=== PATIENT | male | born 1950 | race Caucasian/White ===

== ENCOUNTER → 2020-04-18 10:36 | Outpatient (CLI) | payer MEDICARE, SELFPAY ==
[2020-04-18 11:49] LABS: Add Manual Diff / Slide Review NO; Basophils Absolute Auto 0 /uL (0-100); Basophils Percent Auto 0.5 % (0-2); Eosinophils Absolute Auto 200 /uL (0-450); Eosinophils Percent Auto 2.8 % (2-4); Hematocrit 41.7 % (41-53); Hemoglobin 14.2 g/dL (13.5-17.5); Lymphocytes Absolute Auto 1400 /uL (1100-4500); Lymphocytes Percent Auto 22.6 % (25-40); Mean Corpuscular HGB Conc 33.9 % (30-36); Mean Corpuscular Hemoglobin 31.2 PG (26-34); Monocytes Absolute Auto 600 /uL (0-900); Monocytes Percent Auto 8.9 % (3-14); Neutrophils Absolute Auto 4100 /uL (1500-7000); Neutrophils Percent Auto 65.2 % (50-75); Platelet Count 183 X10^3/uL (150-400); Red Blood Cell Count 4.54 X10^6/uL (4.5-5.9); Red Cell Distribution Width 13.9 % (11.6-14.8); White Blood Cell Count 6.3 X10^3/uL (4.5-11.0)
[2020-04-18 12:12] LABS: Alanine Aminotransferase 20 IU/L (<50); Albumin 4.5 g/dL (3.5-5.0); Albumin Globulin Ratio 1.7 (1.0-2.8); Alkaline Phosphatase 73 U/L (38-126); Aspartate Aminotransferase 22 IU/L (17-59); BUN Creatinine Ratio 18.5 (6-22); Bilirubin Total 1.2 mg/dL (0.2-1.3); Blood Urea Nitrogen 17 mg/dL (9-20); Calcium 9.6 mg/dL (8.4-10.2); Carbon Dioxide 26 mmol/L (22-32); Chloride 106 mmol/L (98-107); Cholesterol 152 mg/dL (140-199); Estimated Glomerular Filt Rate > 60.0 mL/min (>60); Globulin 2.6 g/dL (1.7-4.1); Glucose 110 mg/dL (80-110); HDL Cholesterol 44 mg/dL (40-60); HEMOLYSIS < 15 (0-50); LDL Cholesterol Calculated 89 mg/dL (<100); Potassium 4.2 mmol/L (3.4-5.1); Sodium 138 mmol/L (137-145); Total Protein 7.1 g/dL (6.3-8.2); Triglycerides 93 mg/dL (35-150)
[2020-04-18 12:42] LABS: Prostate Specific Antigen Scrn 1.94 ng/mL (0.1-4.0); TSH w/ Reflex to FT4 1.72 uIU/mL (0.47-4.68)
== END ==
PROVIDERS: PCP Registered Nurse; Referring Provider Registered Nurse; Visit Provider Registered Nurse
DX: Z12.5 Encounter for screening for malignant neoplasm of prostate (principal); I49.9 Cardiac arrhythmia, unspecified; R01.1 Cardiac murmur, unspecified; R53.83 Other fatigue
CPT/HCPCS: 36415; 80053; 80061; 84443; 85025; G0103

== ENCOUNTER 2021-07-18 16:51 | Observation (INO) | payer MEDICARE, SELFPAY ==
[2021-07-18] VITALS (9 sets, daily range): BP systolic 146–163; BP diastolic 75–97; PULSE 75–95; RESP 18–24; TEMP 36.2–36.4; O2SAT 96–100; BMI 24.4; BMI 25.7
--- NOTE | 2021-07-18 16:59 | DI.RAD.S_ITS ---
PROCEDURE: XR CHEST 2V INDICATIONS: shortness of breath TECHNIQUE: 2 views of the chest were acquired. COMPARISON: [facility], CR, XR CHEST 2 VIEWS, 06/02/2020, 11:28. [facility], CR, XR HUMERUS RIGHT, 06/04/2020, 10:29. FINDINGS: Overlying EKG wires. Surgical changes and devices: None. Lungs and pleura: Small right-sided pleural effusion with adjacent atelectasis. Mild interstitial prominence and cephalization of the pulmonary vasculature. No pneumothorax. Mediastinum: Mediastinal contours are normal. Stable cardiomegaly. 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 No acute osseous abnormality. Soft tissues appear unremarkable. IMPRESSION: Cardiomegaly with vascular vascular congestion, interstitial edema, and small right-sided pleural effusion. Dictated by: Chiki Sanders D.O. on 07/18/2021 at 16:48 Approved by: Chiki Sanders D.O. on 07/18/2021 at 16:50
[2021-07-18 17:10] LABS: Add Manual Diff / Slide Review NO; Basophils Absolute Auto 100 /uL (0-100); Basophils Percent Auto 0.6 % (0-2); Eosinophils Absolute Auto 100 /uL (0-450); Eosinophils Percent Auto 1.2 % (2-4); Hematocrit 41.3 % (41-53); Hemoglobin 13.4 g/dL (13.5-17.5); Lymphocytes Absolute Auto 1600 /uL (1100-4500); Lymphocytes Percent Auto 19.7 % (25-40); Mean Corpuscular HGB Conc 32.5 % (30-36); Mean Corpuscular Hemoglobin 30.7 PG (26-34); Mean Corpuscular Volume 94.5 fL (80-100); Monocytes Absolute Auto 1000 /uL (0-900); Monocytes Percent Auto 11.7 % (3-14); Neutrophils Absolute Auto 5600 /uL (1500-7000); Neutrophils Percent Auto 66.8 % (50-75); Platelet Count 204 X10^3/uL (150-400); Red Blood Cell Count 4.38 X10^6/uL (4.5-5.9); Red Cell Distribution Width 14.5 % (11.6-14.8); White Blood Cell Count 8.3 X10^3/uL (4.5-11.0)
--- NOTE | 2021-07-18 17:17 | ED_ITS ---
HPI - SOB/Dyspnea General Chief Complaint: Shortness of Breath/Dyspnea Stated Complaint: lungs are hurting, cant breathe, Time Seen by Provider: 07/18/21 17:05 Source: patient Mode of arrival: Ambulatory Limitations: no limitations History of Present Illness HPI Narrative: The patient complains of dyspnea, and now dyspnea on exertion. He 1st experienced this before 6 weeks ago. He now is experiencing dyspnea on a regular basis, significantly increased with exertion. He became dizzy yesterday with exertion and moving about along with dizziness. He denies chest pain. He does not think he is experiencing palpitations. Medical records indicate a history of atrial fib. He is not anticoagulated. Is a nonsmoker. He has no history of allergies or asthma. He denies recent illness. He has no headache, sore throat, or cough. He denies fever. He has no chronic pulmonary disease. He denies orthopnea or lower extremity edema. He has no current GI complaints. With the known history of atrial fib he was previously prescribed Eliquis. He is currently on no medications. He did not continue the Eliquis because of cost. Related Data Allergies Allergy/AdvReac Type Severity Reaction Status Date / Time No Known Drug Allergies Allergy Verified 07/18/21 17:00 Review of Systems Constitutional Constitutional: Reports as per HPI, Denies body ache(s), Denies chills, Denies fatigue and Denies fever(s) Eyes Eyes: Denies blurry vision and Denies loss of vision ENT Ears, Nose, Mouth, and Throat: Reports dizziness, Denies neck pain and Denies sore throat Cardiovascular Cardiovascular: Denies syncope, Denies rapid heart rate, Denies irregular heart rhythm, Denies leg edema and Reports lightheadedness Respiratory Respiratory: Reports as per HPI Gastrointestinal Gastrointestinal: Denies abdominal pain, Denies dyspepsia and Denies nausea Genitourinary Comments: No symptoms Musculoskeletal Musculoskeletal: Denies neck pain Comments: No complaints Neurologic Neurologic: Denies confusion, Reports dizziness, Denies syncope and Denies loss of vision Psychiatric Psychiatric: Denies confusion Endocrine Endocrine: Denies fatigue Hematologic/Lymphatic On Anticoagulants: No Patient History Medical History (Updated 07/18/21 @ 18:18 by Samy Arguelles MD) Atrial fibrillation Murmur, heart Social History Smoking Status: Never smoker Smoking Status: Never smoker alcohol intake frequency: holidays/special occasions only Substance Use Type: marijuana Exam Initial Vital Signs Initial Vital Signs: Vital Signs Pulse Rate 89 07/18/21 16:58 Respiratory Rate 24 07/18/21 16:58 Pulse Oximetry 99 07/18/21 16:58 Const General: cooperative, healthy appearing and other (Anxious) HENMT Head: normal to inspection Face and sinus: normal facial exam and sinuses nontender Throat: posterior oropharynx normal Eyes EOM: EOM intact bilaterally Neck Neck: supple, No tender and No JVD Carotids: normal carotid upstroke Lymphatic: No lymphadenopathy Chest Chest: normal inspection of the chest Resp Effort & Inspection: normal respiratory effort Auscultation: clear to auscultation bilaterally Cardio Rhythm: abnormal rhythm irregularly irregular Heart Sounds: S1 normal, S2 normal and murmur systolic mid and II/ GI Inspection: normal to inspection Palpation: soft and No tender Auscultation: normal bowel sounds Back/Spine/Pelvis Back: normal to inspection Skin General: no rashes or lesions noted Neuro General: patient alert, patient awake, patient oriented x3 and no focal motor deficits Motor: muscle tone normal throughout Sensory Exam: no sensory deficits noted Extrem General: normal to inspection, full ROM and no calf tenderness Psych Appearance: well kempt Mood: anxious mood Course Course Course Narrative: The patient has cardiomegaly and CHF. This was discussed with the hospitalist, Dr. Huff. Dr. Huff had access to a cardiac catheterization about 13 months ago that the patient made no mention of. The patient is post be on beta blockers, aspirin and statins. He was also prescribed anticoagulants for AFib. Again, he is taking no medications. I have given him aspirin, as well as a dose of Lasix due to the CHF. He will be admitted for additional e valuation. A COVID screen is negative. Orders Ordered: ED Orders 07/18/21 16:58 COVID19 -Nasal swab/Pre-Proc Stat 07/18/21 16:59 XR chest 2V Stat EKG-12 Lead Stat Measure peak expiratory flow ONCE RT Consult Eval and Treat Now 07/18/21 17:00 Complete Blood Count AUTO DIFF Stat Comprehensive Metabolic Panel Stat Lactate (Lactic Acid) Stat NT-proBNP (BNP-Adult 18+) Stat Vital Signs Vital signs: Vital Signs - 8 hr 07/18/21 16:58 07/18/21 17:00 07/18/21 17:01 Temperature 97.2 F L Pulse Rate 89 89 92 H Respiratory Rate 24 22 19 Blood Pressure 153/97 H 155/86 H Pulse Oximetry 99 99 98 MDM - SOB/Dyspnea Lab Data Result diagrams: 07/18/21 17:00 07/18/21 17:00 Labs: Lab Results 07/18/21 07/18/21 07/18/21 Range/Units 16:58 17:00 17:00 WBC 8.3 (4.5-11.0) X10^3/uL RBC 4.38 L (4.5-5.9) X10^6/uL Hgb 13.4 L (13.5-17.5) g/dL Hct 41.3 (41-53) % MCV 94.5 (80-100) fL MCH 30.7 (26-34) PG MCHC 32.5 (30-36) % RDW 14.5 (11.6-14.8) % Plt Count 204 (150-400) X10^3/uL Neut % (Auto) 66.8 (50-75) % Lymph % (Auto) 19.7 L (25-40) % [place] % (Auto) 11.7 (3-14) % Eos % (Auto) 1.2 L (2-4) % Baso % (Auto) 0.6 (0-2) % Neut # (Auto) 5600 (9557-1873) /uL Lymph # (Auto) 1600 (2995-7463) /uL [place] # (Auto) 1000 H (0-900) /uL Eos # (Auto) 100 (0-450) /uL Baso # (Auto) 100 (0-100) /uL Sodium 140 (137-145) mmol/L Potassium 4.1 (3.4-5.1) mmol/L Chloride 107 (98-107) mmol/L Carbon Dioxide 26 (22-32) mmol/L BUN 28 H (9-20) mg/dL Creatinine 1.10 (0.66-1.25) mg/dL Estimated GFR > 60.0 (>60) mL/min BUN/Creatinine Ratio 25.5 H (6-22) Glucose 125 H (80-110) mg/dL Lactate (0.7-2.1) mmol/L Calcium 9.0 (8.4-10.2) mg/dL Total Bilirubin 1.2 (0.2-1.3) mg/dL AST 28 (17-59) IU/L ALT 28 (<50) IU/L Alkaline Phosphatase 86 (38-126) U/L NT-Pro-B Natriuret Pep 6760 H (<125) pg/mL Total Protein 7.1 (6.3-8.2) g/dL Albumin 4.1 (3.5-5.0) g/dL Globulin 3.0 (1.7-4.1) g/dL Albumin/Globulin Ratio 1.4 (1.0-2.8) SARS-CoV-2 (PCR) Negative (Negative) 07/18/21 Range/Units 17:00 WBC (4.5-11.0) X10^3/uL RBC (4.5-5.9) X10^6/uL Hgb (13.5-17.5) g/dL Hct (41-53) % MCV (80-100) fL MCH (26-34) PG MCHC (30-36) % RDW (11.6-14.8) % Plt Count (150-400) X10^3/uL Neut % (Auto) (50-75) % Lymph % (Auto) (25-40) % [place] % (Auto) (3-14) % Eos % (Auto) (2-4) % Baso % (Auto) (0-2) % Neut # (Auto) (1712-2690) /uL Lymph # (Auto) (5453-7198) /uL [place] # (Auto) (0-900) /uL Eos # (Auto) (0-450) /uL Baso # (Auto) (0-100) /uL Sodium (137-145) mmol/L Potassium (3.4-5.1) mmol/L Chloride (98-107) mmol/L Carbon Dioxide (22-32) mmol/L BUN (9-20) mg/dL Creatinine (0.66-1.25) mg/dL Estimated GFR (>60) mL/min BUN/Creatinine Ratio (6-22) Glucose (80-110) mg/dL Lactate 1.1 (0.7-2.1) mmol/L Calcium (8.4-10.2) mg/dL Total Bilirubin (0.2-1.3) mg/dL AST (17-59) IU/L ALT (<50) IU/L Alkaline Phosphatase (38-126) U/L NT-Pro-B Natriuret Pep (<125) pg/mL Total Protein (6.3-8.2) g/dL Albumin (3.5-5.0) g/dL Globulin (1.7-4.1) g/dL Albumin/Globulin Ratio (1.0-2.8) SARS-CoV-2 (PCR) (Negative) Imaging Data Chest x-ray: My Impression: Cardiomegaly. CHF. ECG Data Attestation: I personally reviewed and interpreted this ECG as follows: (AFib. LVH. Persistent motion artifact. PVCs. No acute ST T wave elevation.) Critical Care Time Critical Care Time Critical Care Time: Yes Total Critical Care Time: 40 Attestation: Critical care time includes the initial patient assessment, review of available records, review of EKG, lab and radiology data. The situation was discussed with the patient. He was presented to the admitting hospitalist. Discharge Plan Departure Patient Disposition: Admitted as Observation Clinical Impression: Cardiomegaly Congestive heart failure Qualifiers: Heart failure type: unspecified Heart failure chronicity: acute Qualified Code(s): I50.9 - Heart failure, unspecified Atrial fibrillation Qualifiers: Atrial fibrillation type: persistent (not longstanding) Qualified Code(s): I48.19 - Other persistent atrial fibrillation Referrals: Candelario Koch ARNP [Primary Care Provider] - Admit Date/Time: 07/18/21 18:17
[2021-07-18 17:21] LABS: Lactate (Lactic Acid) 1.1 mmol/L (0.7-2.1)
[2021-07-18 17:22] LABS: Alanine Aminotransferase 28 IU/L (<50); Albumin 4.1 g/dL (3.5-5.0); Albumin Globulin Ratio 1.4 (1.0-2.8); Alkaline Phosphatase 86 U/L (38-126); Aspartate Aminotransferase 28 IU/L (17-59); BUN Creatinine Ratio 25.5 (6-22); Bilirubin Total 1.2 mg/dL (0.2-1.3); Blood Urea Nitrogen 28 mg/dL (9-20); Carbon Dioxide 26 mmol/L (22-32); Chloride 107 mmol/L (98-107); Estimated Glomerular Filt Rate > 60.0 mL/min (>60); Glucose 125 mg/dL (80-110); HEMOLYSIS < 15 (0-50); Potassium 4.1 mmol/L (3.4-5.1); Sodium 140 mmol/L (137-145); Total Protein 7.1 g/dL (6.3-8.2)
[2021-07-18 17:25] LABS: COVID19 -Nasal RAPID Negative (Negative)
[2021-07-18 17:31] LABS: NT-proBNP (BNP-Adult 18+) 6760 pg/mL (<125)
--- NOTE | 2021-07-18 18:01 | PC.NURSE ---
Pt resting quietly in bed, awake, call light within reach. States symptoms persist but are not getting worse. Remains A&Ox4, NAD.
[2021-07-18] MEDS: FUROSEMIDE 40 MG/4 ML VIAL IV (18:18)
[2021-07-18] MEDS: ASPIRIN 81 MG CHEW TAB 324 MG PO (18:18)
--- NOTE | 2021-07-18 19:00 | PC.NURSE ---
Report called to MARY Sykes
[2021-07-18 19:09] LABS: Creatine Kinase 155 U/L (55-170)
[2021-07-18 19:25] LABS: Creatine Kinase MB 3.07 ng/mL (<2.37)
--- NOTE | 2021-07-18 19:43 | PC.NURSE ---
Addendum entered by Mony Tirado R.N. 07/18/21 23:38: patient continues to deny chest pain/dyspnea/sob. tele afib 86. leads removed and replaced after an impromptu wax job of his chest hair. ICU reports better view on monitor. will have Echo tomorrow, 1st trop was 0.30, trending up 0.35. FR 2000/shift. report to CHASITY Pelayo RN. Original Note: 1904: admit to floor from ED via w/c. a/o x 4, voices needs. stands easily, ambulated to/from bathroom w/ steady gait. denies cp / dyspnea. LS are CTA all lobes. no SOB noted at rest or after exertion. no skin issues. VS obtained, covid - spoke w/ daughter Kristi after patient gave verbal consent for this nurse to give her information. his main visitor will be his Nichole, and she will be here tomorrow morning. ok from [place] for patient to be placed on telemetry for dx: cardiomegaly, hx afib w/o medications, hx of HTN. and presentation of CP vs pneumonia/CHF. tele applied, oriented to room, call light, plan of care. patient states he understands.
--- NOTE | 2021-07-18 19:44 | P.HP_ITS ---
History of Present Illness History of Present Illness Date Patient Seen: 07/18/21 Time Patient Seen: 19:44 Chief complaint: lungs are hurting, cant breathe, Narrative: Rodney Izquierdo is a 70yr old male with a history of essential hypertension, non-smoker, cardiomegaly, atrial fibrillation, Hx Heart Cath 05/2020. Presented to the ED with complaint of worsening dyspnea, and dyspnea on exertion. He now is experiencing dyspnea on a regular basis for the past 6 wks, which recently significantly increased with exertion.? He became dizzy yesterday with exertion and moving about along with dizziness.? He denies chest pain, SIMPSON, arm pain, numbness, tingling, fever, body aches, diaphoresis, respiratory symptoms, abd pain, nausea, or vomiting. Denies recent illness, injury, or trauma. Denies Cardiac or respiratory history, edema of extremities, or orthopenia. He does not think he is experiencing palpitations, but notes that he can feel his afib.?The patient was prescribed metoprolol, Losarten, aspirin, Lipitor, Eliquis following Heart catheterization 05/2020 Dr. Mcdonald He lost his employment about a year ago and was unable to afford to pay for his medications, and have not taken them x 1year. Upon admit to the floor patient is stable in no respiratory distress, dyspnea has improved with 40 of IV Lasix in ED, not requiring oxygen. Patient's vitals are stable upon admit with a slightly elevated blood pressure temp 97.2?, BP 163/88, HR 89, RR 20, O2 saturation 97% on room air. Patient's CBC normal, CMP BUN 28, glucose 125, BNP 6,760, troponin#1 0.030, #2 0.034-patient is completely asymptomatic without chest pain or shortness of breath. Chest x-ray demonstrated cardiomegaly with vascular congestion, interstitial edema, and a small right-sided pleural effusion. COVID negative. Per ED:?ECG as follows:AFib.?LVH.?Persistent motion artifact.? PVCs.? No acute ST T wave elevation. Patient admitted for shortness of breath, uncontrolled hypertension. Patient History Medical History (Updated 07/19/21 @ 00:54 by VI Polanco) Atrial fibrillation Cardiomegaly Essential hypertension Murmur, heart Surgical History (Updated 07/19/21 @ 00:54 by Mona Heller [facility]) No history of previous surgery Family & Social History Family History Mother Dementia Father Sepsis Sister Cancer Safety & Behavioral: Feels Safe in Current Yes Environment Been Physically Hurt or No Threatened By a Person Tobacco & Substance use: Smoking Status Never smoker alcohol intake frequency holiday/special occasion Substance Use Type marijuana Meds Home Medications and Allergies Home Medications Medication Instructions Recorded Confirmed Type No Known Home Medications 07/18/21 07/18/21 History Allergies Allergy/AdvReac Type Severity Reaction Status Date / Time No Known Drug Allergies Allergy Verified 07/18/21 17:00 Review of Systems Review of Systems Narrative: All 12 point systems reviewed with the patient and are negative except otherwise documented. Exam Vital Signs (past 8 hours): - 07/18/21 16:58 07/18/21 17:00 07/18/21 17:01 Temperature 97.2 F L Pulse Rate 89 89 92 H Respiratory Rate 24 22 19 Blood Pressure 153/97 H 155/86 H Pulse Oximetry 99 99 98 07/18/21 17:30 07/18/21 17:31 07/18/21 18:00 Temperature Pulse Rate 89 85 75 Respiratory Rate 22 19 19 Blood Pressure 155/82 H 151/75 H 146/80 H Pulse Oximetry 97 97 96 07/18/21 18:30 07/18/21 18:31 Temperature Pulse Rate 95 H 89 Respiratory Rate 22 20 Blood Pressure 163/88 H Pulse Oximetry 97 97 Oxygen Delivery Method Room Air Narrative Exam Narrative: General: Patient is a well-developed, well-nourished in no distress at this time. HEENT: Normocephalic, atraumatic, extraocular muscles intact, oral pharynx is clear and mucous membranes are moist. Neck is supple and symmetric, trachea is midline, no adenopathy, no thyroid enlargement, nontender, no masses palpated. Positive Left JVD. Chest: Normal AP diameter and contour without kyphoscoliosis, no nasal flaring, retractions, or tachypneic labored breathing. Lungs: Auscultation of all lung gold are clear without adventitious sounds, wheezes, rhonchi, or rales. Cardio: S1 & S2 with iregular rate and rhythm with murmur, without rubs, or gallops, no carotid bruit, no cardiac pulsations present. Abdomen: Soft nontender, negative for organomegaly, or masses. Bowel sounds are present in all 4 quadrants without guarding or rebound, no CVA tenderness. Musculoskeletal: Muscle strength and tone are equal within normal limits, no deformity, crepitus, effusions, cyanosis, clubbing or edema present. Full range of motion intact radial and pedal pulses are normal. Skin: Warm dry and intact without rashes, ulcerations or petechiae. Neuro: Alert and orientated x3, strength is +5/5 in all extremities, sensation to touch intact, no gross deficits noted of cranial nerves. Psych: Patient has a well-kept appearance, appropriate affect, mental status attitude thought context and judgment are appropriate for age. Objective Labs Result Diagrams: 07/18/21 17:00 07/18/21 17:00 Labs: Laboratory Results - last 24 hr 07/18/21 07/18/21 07/18/21 16:58 17:00 17:00 WBC 8.3 RBC 4.38 L Hgb 13.4 L Hct 41.3 MCV 94.5 MCH 30.7 MCHC 32.5 RDW 14.5 Plt Count 204 Neut % (Auto) 66.8 Lymph % (Auto) 19.7 L [place] % (Auto) 11.7 Eos % (Auto) 1.2 L Baso % (Auto) 0.6 Neut # (Auto) 5600 Lymph # (Auto) 1600 Tate # (Auto) 1000 H Eos # (Auto) 100 Baso # (Auto) 100 Sodium 140 Potassium 4.1 Chloride 107 Carbon Dioxide 26 BUN 28 H Creatinine 1.10 Estimated GFR > 60.0 BUN/Creatinine Ratio 25.5 H Glucose 125 H Lactate Calcium 9.0 Total Bilirubin 1.2 AST 28 ALT 28 Alkaline Phosphatase 86 Total Creatine Kinase CK-MB (CK-2) CK-MB (CK-2) Rel Index Troponin I NT-Pro-B Natriuret Pep 6760 H Total Protein 7.1 Albumin 4.1 Globulin 3.0 Albumin/Globulin Ratio 1.4 SARS-CoV-2 (PCR) Negative 07/18/21 07/18/21 17:00 17:00 WBC RBC Hgb Hct MCV MCH MCHC RDW Plt Count Neut % (Auto) Lymph % (Auto) Tate % (Auto) Eos % (Auto) Baso % (Auto) Neut # (Auto) Lymph # (Auto) Tate # (Auto) Eos # (Auto) Baso # (Auto) Sodium Potassium Chloride Carbon Dioxide BUN Creatinine Estimated GFR BUN/Creatinine Ratio Glucose Lactate 1.1 Calcium Total Bilirubin AST ALT Alkaline Phosphatase Total Creatine Kinase 155 CK-MB (CK-2) 3.07 H CK-MB (CK-2) Rel Index 2.0 Troponin I 0.030 NT-Pro-B Natriuret Pep Total Protein Albumin Globulin Albumin/Globulin Ratio SARS-CoV-2 (PCR) Assessment & Plan Assessment & Plan narrative: Rodney Izquierdo is a 70yr old male with a history of essential hypertension, non-smoker, cardiomegaly, atrial fibrillation, Hx Heart Cath 05/2020. Presented to the ED with complaint of worsening dyspnea, and dyspnea on exertion. The patient was prescribed metoprolol, Losarten, aspirin, Lipitor, Eliquis following Heart catheterization 05/2020 Dr. Mcdonald He lost his employment about a year ago and was unable to afford to pay for his eventblimp dications, and have not taken them x 1year. Patient admitted for shortness of breath, and uncontrolled hypertension. Plan of care to diurese patient, rule out infection, evaluation of heart failure. 1. Shortness of breath, acute, in the setting of cardiomegaly, the set of possible new onset congestive heart failure exacerbation, acute, present on admission -BNP 6, 760, -Lasix 20 mg IV b.i.d.-patient had significant improvement following 40 mg of IV Lasix in ED. -Patient may need to be on daily low dose PO Lasix or spirolactone to manage fluid. -respiratory consult and DuoNeb inhalations as needed as needed for shortness of breath, cough -patient education provided regarding the use of Coumadin/cost, also good Rx to help offset the cost of prescription medications. And education regarding risks due to noncompliance. -echocardiogram ordered for tomorrow. -repeat BNP, ordered D-dimer r/o PE, procalcitonin 2. Atrial fibrillation, rate controlled, acute on chronic, in the setting of uncontrolled hypertension, essential, acute on chronic, present on admission -Per ED:?ECG as follows:AFib.?LVH.?Persistent motion artifact.? PVCs.? No acute ST T wave elevation. -troponin 1. 0.030, 2. 0.034, B/P 163/88, 150's/70's -05/2020 cardiac catheterization/Dr. Mcdonald: Minimal coronary artery disease in LAD andostial dad male artery. The rest of the arteries are without significant disease. Severe hypertension with mildly elevated LVEDP. -patient placed on telemetry -restarted patient's Eliquis 5 mg b.i.d., ASA 81 mg q.day, metoprolol 25 mg b.i.d., Lipitor 40 mg QD -TSH, Lipid panel -patient education provided regarding the use of Coumadin/cost, also good Rx to help offset the cost of prescription medications. And education regarding risks due to noncompliance. -echocardiogram ordered for tomorrow. -trend troponins Code status:Full Surrogate decision maker: Vikki Brady COVID PCR:Negative COVID vaccination: Unknown DVT/VTE prophylaxis: Eliquis & SCD's Disposition: Patient admitted for observation estimated length of stay less than 2 midnights. I have utilized all available immediate resources to obtain, update, or review the patient's current medications. I confirmed that the patient's advanced care plan is present, Code status is documented and/or surrogate decision maker is listed in the patient's medical record. Time Spent With Patient Critical Care time: I spent a total of [] minutes of critical care time on this patient's care today; this time is exclusive of procedural time.
[2021-07-18 20:05] LABS: INR 1.5 (0.9-1.3); Prothrombin Time 16.6 SECONDS (10.1-12.7)
[2021-07-18 20:08] LABS: PTT Partial Thromboplastin Tim 32 SECONDS (26.4-36.2)
[2021-07-18 20:09] LABS: Magnesium 2.1 mg/dL (1.6-2.3)
[2021-07-18] MEDS: METOPROLOL IR 25 MG TABLET PO (20:27)
[2021-07-18] MEDS: APIXABAN 5 MG TABLET PO (20:27)
[2021-07-18 20:53] LABS: Troponin I 0.034 ng/mL (0.01-0.034)
[2021-07-19 00:20] VITALS: BP 151/71; PULSE 78; RESP 19; TEMP 36.6; O2SAT 96
[2021-07-19 04:33] VITALS: BP 140/81; PULSE 75; RESP 19; TEMP 36.6; O2SAT 98
[2021-07-19 06:19] LABS: D Dimer 220 ng/mL (<230)
[2021-07-19 06:28] LABS: BUN Creatinine Ratio 24.1 (6-22); Blood Urea Nitrogen 27 mg/dL (9-20); Calcium 8.8 mg/dL (8.4-10.2); Carbon Dioxide 27 mmol/L (22-32); Chloride 104 mmol/L (98-107); Cholesterol 108 mg/dL (140-199); Estimated Glomerular Filt Rate > 60.0 mL/min (>60); Glucose 116 mg/dL (80-110); HDL Cholesterol 36 mg/dL (40-60); HEMOLYSIS < 15 (0-50); LDL Cholesterol Calculated 61 mg/dL (<100); Potassium 3.9 mmol/L (3.4-5.1); Sodium 138 mmol/L (137-145); Triglycerides 54 mg/dL (35-150)
[2021-07-19 06:36] LABS: NT-proBNP (BNP-Adult 18+) 5010 pg/mL (<125)
[2021-07-19 06:39] LABS: Troponin I 0.042 ng/mL (0.01-0.034)
[2021-07-19 06:44] LABS: Procalcitonin 0.13 ng/mL (<0.5)
[2021-07-19 08:00] VITALS: BP 142/78; PULSE 69; RESP 18; TEMP 36.3; O2SAT 95
[2021-07-19] MEDS: ASPIRIN EC 81 MG TABLET PO (09:09)
[2021-07-19] MEDS: FUROSEMIDE 20 MG/2 ML VIAL IV ×2 (09:09→19:38)
[2021-07-19] MEDS: APIXABAN 5 MG TABLET PO ×2 (09:09→19:37)
[2021-07-19] MEDS: METOPROLOL IR 25 MG TABLET PO ×2 (09:09→19:37)
--- NOTE | 2021-07-19 09:32 | CM.DANOTE ---
Patient is a 70 yo male who was admitted on 07/18/21 for lungs hurting/SOB. Pt has MCR for insurance and his PCP is Candelario Koch. EMR was reviewed. Per MD, pt with hx of heart cath in May [address] Mcdonald and with dyspnea now and possible new CHF. Echo ordered and pending. SW met bedside with pt and explained role and he confirms he lives in [place] with his Sig Other Vikki who informally is his DPOA as he hasn't completed pwk yet and his Dtr Kristi lives locally as well. Pt is active and independent at baseline and confirms during COVID he lost his job and had financial concerns and could not afford some of his medications and therefore stopped taking them. Pt states he is now employed again and now aware of [facility] if he is having difficulty paying for meds and that he could also talk to his MD about switching to cheaper med if needed. Pt denies any hx of HH or SNF and still drives and does not use DME and is hopeful for d/c home today and Sig Other Vikki can transport home at d/c. Plan: SW to follow for Echo results towards confirming safe d/c plan home with Sig Other and any further identified needs. BRYSON Kirk Discharge Planning/Care Management CM Discharge Assessment Start: 07/19/21 09:29 Freq: Status: Active Protocol: Document 07/19/21 09:30 BF (Rec: 07/19/21 09:32 [id number]) Discharge Planning Assessment Assigned Service Shop Foreman BRYSON Snyder DPOA/Assigned Designee Name informally Sig Other Vikki Contact Information [phone] Advance Directives? No Advance Directives on File No History Provided By Patient,Medical Record Has Patient been admitted in last 30 No days? Prior Living Arrangements House Household Members significant other Type of transporation used prior to Drives own vehicle admit Willing to Return to Facility? No Independent with ADL's Yes Is patient alert and oriented? Yes Caregiver for Another No Barriers to Discharge No Discharge Plan Home Transportation Arrangement Sig Other Vikki can transport at d/c Referrals Initiated None needed Additional Comment Pending Echo results Whiteboard Updated in Patient Room with Yes name and ext. # of Service Shop Foreman Review Status In Process Please Provide Date Initial DC 07/19/21 Assessment Was Performed Next Review Type Continued Stay Review
--- NOTE | 2021-07-19 11:13 | DI.ECHO.S_ITS ---
[place] [facility]---------+ [facility] +---------+ : : [address] : [address] : : : : [id number] : : : : Phone: [phone]+ Echocardiogram Report + + :Name: MASHA DAVILA Study Date: 07/19/2021 Height: 72 in : :[facility] ReadingLocation: Weight: 189 lb : : Gender: Male BSA: 2.1 m2 : :: 1950 Age: 70 yrs BP: 136/76 mmHg: :Reason For Study: Dyspnea : :Ordering Physician: Gareth : :Hospitalist Performed By: Estella Roberson : :Referring: ROBERT HENAO : + + Interpretation Summary Limited Echo: 1) Upper normal left ventricular size with moderately reduced systolic function (EF 35-40%). 2) Mildly enlarged right ventricle with mildly reduced function. 3) There is mild aortic regurgitation. 4) There is mild to moderate tricuspid regurgitation. 5) The right ventricular systolic pressure is estimated to be at least 55 mmHg based on an estimated right atrial pressure of 15 mm Hg. 6) There is a small right-sided pleural effusion. 7) Compared to the echo 05/30/2020, right sided hypervolemia is present on this study. Procedure: A two-dimensional transthoracic echocardiogram with color flow and Doppler was performed in limited views only to assess left ventricular function and wall motion. The study quality was technically good. Comparison is made with the echocardiogram of 05/30/2020.. The patient was in atrial fibrillation with heart rates between 61-83 bpm during the exam. Left Ventricle: Left ventricular wall thickness is mildly increased. Left ventricular size is at the upper limits of normal. The estimated left ventricular end diastolic volume is 150 ml. A false chord is noted (normal variant). There is no thrombus. The ejection fraction is estimated to be 35- 40%. There is moderate global hypokinesis of the left ventricle. Diastolic function could not be accurately assessed due to atrial fibrillation. Right Ventricle: The right ventricle is mildly dilated. TAPSE is 1.5 cm. Right ventricular systolic function is mildly reduced. Atria: The left atrium is severely dilated. Mitral Valve: There is mild mitral regurgitation. Aortic Valve: The aortic valve is trileaflet. The aortic valve opens well. There is mild aortic regurgitation. There is an eccentric jet of aortic insufficiency directed against the anterior mitral leaflet. Tricuspid Valve: There is mild to moderate tricuspid regurgitation. The right ventricular systolic pressure is estimated to be at least 55 mmHg based on an estimated right atrial pressure of 15 mm Hg. Great Vessels: The IVC is dilated (diameter is greater than 2.1 cm) and it collapses less than 50% with a sniff. This suggests a high right atrial pressure of 15 mm Hg. There is systolic flow reversal in the hepatic vein during inspiration. Pericardium/ Pleura There is no pericardial effusion. There is a small right-sided pleural effusion. MMode/2D Measurements & Calculations LVIDd: 5.5 cm LA A2 area: 35.7 cm2 LVIDs: 4.7 cm LA A4 area: 40.6 cm2 FS: 13.7 % LA length (vol): 8.4 cm IVSd: 0.87 cm LA vol: 146.0 ml LVPWd: 1.2 cm LA vol index: 70.2 ml/m2 LV carrero. diameter/BSA (cm/m^2): 2.6 LV sys. diameter/BSA (cm/m^2): 2.3 IVC diam: 2.6 cm RVD1 (basal): 4.8 cm TAPSE: 1.5 cm Doppler Measurements & Calculations MV E max hugo: 58.7 cm/sec TR max hugo: 316.3 cm/sec MV A max hugo: 0.32 cm/sec TR max P.0 mmHg MV E/A: 184.9 Med Peak E' Hugo: 4.8 cm/sec E/E' med: 12.1 Lat Peak E' Hugo: 9.9 cm/sec E/E' lat: 5.9 E/e' average: 9.0 MV dec time: 0.24 sec Reading Physician:02:16 PM
[2021-07-19 11:26] VITALS: BP 136/76; PULSE 59; RESP 59; TEMP 36.1; O2SAT 96
[2021-07-19 12:08] LABS: Troponin I 0.026 ng/mL (0.01-0.034)
--- NOTE | 2021-07-19 15:28 | P.DS_ITS ---
History of Present Illness History of Present Illness Date Patient Seen: 07/19/21 Time Patient Seen: 15:28 Chief complaint: lungs are hurting, cant breathe, Narrative: Per Mona Heller, [facility]-: Rodney Izquierdo is a 70yr old male with a history of essential hypertension, non- smoker, cardiomegaly, atrial fibrillation, Hx Heart Cath 05/2020. Presented to the ED with complaint of worsening dyspnea, and dyspnea on exertion. He now is experiencing dyspnea on a regular basis for the past 6 wks, which recently significantly increased with exertion.? He became dizzy yesterday with exertion and moving about along with dizziness.? He denies chest pain, SIMPSON, arm pain, numbness, tingling, fever, body aches, diaphoresis, respiratory symptoms, abd pain, nausea, or vomiting. Denies recent illness, injury, or trauma.? Denies Cardiac or respiratory history, edema of extremities, or orthopenia. He does not think he is experiencing palpitations, but notes that he can feel his afib.?The patient was prescribed metoprolol, Losarten, aspirin, Lipitor, Eliquis following Heart catheterization 05/2020 Dr. Mcdonald? He lost his employment about a year ago and was unable to afford to pay for his medications, and have not taken them x 1year.? Upon admit to the floor patient is stable in no respiratory distress, dyspnea has improved with 40 of IV Lasix in ED, not requiring oxygen.? Patient's vitals are stable upon admit with a slightly elevated blood pressure temp 97.2?, BP 163/88, HR 89, RR 20, O2 saturation 97% on room air.? Patient's CBC normal, CMP BUN 28, glucose 125, BNP 6,760, troponin#1 0.030, #2 0.034-patient is completely asymptomatic without chest pain or shortness of breath.? Chest x-ray demonstrated cardiomegaly with vascular congestion, interstitial edema, and a small right-sided pleural effusion.? COVID negative. Per ED:?ECG as follows:AFib.?LVH.?Persistent motion artifact.? PVCs.? No acute ST T wave elevation.? Patient admitted for shortness of breath, uncontrolled hypertension. Discharge Providers Provider Date of admission: 07/18/21 18:17 Discharge Date: 07/19/21 Primary care physician: KODY Smyth Consults: 07/18/21 19:39 Consult to Respiratory Therapy Evaluate & Treat Comment: CHF exac PRN Physician Instructions: Evaluate and treat Discharge provider: Sameer Huff DO Summary Hospital Course Discharge Diagnosis: 1. new diagnosis of acute systolic heart failure, in setting of previously known chronic diastolic heart failure, present on admission. 2. Atrial fibrillation, rate controlled, chronic 3. Essential hypertension 4. CAD Hospital Course: This is a 70-year-old male with a past medical history of hypertension, chronic atrial fibrillation, CAD, and prior diastolic dysfunction who was admitted with shortness of breath /dyspnea on exertion. He improved quicker than expected with IV diuresis and his symptoms had improved the following morning. His echocardiogram did show an EF of 35-40% on a a limited study, this is similar to 40-45% previously seen a few months ago but slightly worsen. He was discharged on oral Lasix, as well as an Sergio inhibitor and a beta-jv for his newly diagnosed systolic dysfunction in the setting of previously known diastolic disease. Given patient's prior left heart catheterization which showed non interventional coronary artery disease, the patient is recommended to continue on an aspirin and statin which was prescribed. For his atrial fibrillation I recommend follow-up with his primary care provider for initiation of warfarin in the near future, given he was previously described a NOAC which he could not afford. He was rate controlled this admission, however metoprolol was added above for his systolic disease. Exam Vital Signs (past 8 hours): - 07/19/21 08:00 07/19/21 11:26 Temperature 97.4 F L 96.9 F L Pulse Rate 69 59 L Respiratory Rate 18 59 H Blood Pressure 142/78 H 136/76 Pulse Oximetry 95 96 Oxygen Delivery Method Room Air Oxygen Flow Rate 0 Narrative Exam Narrative: General:? Patient is a well-developed, well-nourished in no distress at this time. HEENT:? Normocephalic, atraumatic, extraocular muscles intact, oral pharynx is clear and mucous membranes are moist.? No JVD Chest:? Normal AP diameter and contour without kyphoscoliosis, no nasal flaring, retractions, or tachypneic labored breathing. Lungs:? Auscultation of all lung gold are clear without adventitious sounds, wheezes, rhonchi, or rales. Cardio:? irregularly irregular, normal rate. no m/r/g. Abdomen:?S NT ND Musculoskeletal:?no tenderness or joint effusions Skin:? Warm dry and intact without rashes, ulcerations or petechiae.? Neuro:? Alert and orientated x3, strength is +5/5 in all extremities, sensation to touch intact, no gross deficits noted of cranial nerves. Psych:? Patient has a well-kept appearance, appropriate affect, mental status attitude thought context and judgment are appropriate for age. Objective Labs Result Diagrams: 07/18/21 17:00 07/19/21 05:37 Labs: Laboratory Results - last 24 hr 07/18/21 07/18/21 07/18/21 16:58 17:00 17:00 WBC 8.3 RBC 4.38 L Hgb 13.4 L Hct 41.3 MCV 94.5 MCH 30.7 MCHC 32.5 RDW 14.5 Plt Count 204 Neut % (Auto) 66.8 Lymph % (Auto) 19.7 L [place] % (Auto) 11.7 Eos % (Auto) 1.2 L Baso % (Auto) 0.6 Neut # (Auto) 5600 Lymph # (Auto) 1600 [place] # (Auto) 1000 H Eos # (Auto) 100 Baso # (Auto) 100 PT INR APTT D-Dimer Sodium 140 Potassium 4.1 Chloride 107 Carbon Dioxide 26 BUN 28 H Creatinine 1.10 Estimated GFR > 60.0 BUN/Creatinine Ratio 25.5 H Glucose 125 H Lactate Calcium 9.0 Magnesium Total Bilirubin 1.2 AST 28 ALT 28 Alkaline Phosphatase 86 Total Creatine Kinase CK-MB (CK-2) CK-MB (CK-2) Rel Index Troponin I NT-Pro-B Natriuret Pep 6760 H Total Protein 7.1 Albumin 4.1 Globulin 3.0 Albumin/Globulin Ratio 1.4 Triglycerides Cholesterol LDL Cholesterol, Calc HDL Cholesterol Procalcitonin TSH SARS-CoV-2 (PCR) Negative 07/18/21 07/18/21 07/18/21 17:00 17:00 17:00 WBC RBC Hgb Hct MCV MCH MCHC RDW Plt Count Neut % (Auto) Lymph % (Auto) [place] % (Auto) Eos % (Auto) Baso % (Auto) Neut # (Auto) Lymph # (Auto) [place] # (Auto) Eos # (Auto) Baso # (Auto) PT INR APTT D-Dimer Sodium Potassium Chloride Carbon Dioxide BUN Creatinine Estimated GFR BUN/Creatinine Ratio Glucose Lactate 1.1 Calcium Magnesium 2.1 Total Bilirubin AST ALT Alkaline Phosphatase Total Creatine Kinase 155 CK-MB (CK-2) 3.07 H CK-MB (CK-2) Rel Index 2.0 Troponin I 0.030 NT-Pro-B Natriuret Pep Total Protein Albumin Globulin Albumin/Globulin Ratio Triglycerides Cholesterol LDL Cholesterol, Calc HDL Cholesterol Procalcitonin TSH SARS-CoV-2 (PCR) 07/18/21 07/18/21 07/18/21 17:00 17:00 20:15 WBC RBC Hgb Hct MCV MCH MCHC RDW Plt Count Neut % (Auto) Lymph % (Auto) [place] % (Auto) Eos % (Auto) Baso % (Auto) Neut # (Auto) Lymph # (Auto) [place] # (Auto) Eos # (Auto) Baso # (Auto) PT 16.6 H INR 1.5 H APTT 32 D-Dimer Sodium Potassium Chloride Carbon Dioxide BUN Creatinine Estimated GFR BUN/Creatinine Ratio Glucose Lactate Calcium Magnesium Total Bilirubin AST ALT Alkaline Phosphatase Total Creatine Kinase CK-MB (CK-2) CK-MB (CK-2) Rel Index Troponin I 0.034 NT-Pro-B Natriuret Pep Total Protein Albumin Globulin Albumin/Globulin Ratio Triglycerides Cholesterol LDL Cholesterol, Calc HDL Cholesterol Procalcitonin TSH 2.60 SARS-CoV-2 (PCR) 07/19/21 07/19/21 07/19/21 05:37 05:37 05:37 WBC RBC Hgb Hct MCV MCH MCHC RDW Plt Count Neut % (Auto) Lymph % (Auto) [place] % (Auto) Eos % (Auto) Baso % (Auto) Neut # (Auto) Lymph # (Auto) [place] # (Auto) Eos # (Auto) Baso # (Auto) PT INR APTT D-Dimer 220 Sodium 138 Potassium 3.9 Chloride 104 Carbon Dioxide 27 BUN 27 H Creatinine 1.12 Estimated GFR > 60.0 BUN/Creatinine Ratio 24.1 H Glucose 116 H Lactate Calcium 8.8 Magnesium Total Bilirubin AST ALT Alkaline Phosphatase Total Creatine Kinase CK-MB (CK-2) CK-MB (CK-2) Rel Index Troponin I 0.042 H NT-Pro-B Natriuret Pep 5010 H Total Protein Albumin Globulin Albumin/Globulin Ratio Triglycerides 54 Cholesterol 108 L LDL Cholesterol, Calc 61 HDL Cholesterol 36 L Procalcitonin TSH SARS-CoV-2 (PCR) 07/19/21 07/19/21 05:37 11:40 WBC RBC Hgb Hct MCV MCH MCHC RDW Plt Count Neut % (Auto) Lymph % (Auto) [place] % (Auto) Eos % (Auto) Baso % (Auto) Neut # (Auto) Lymph # (Auto) [place] # (Auto) Eos # (Auto) Baso # (Auto) PT INR APTT D-Dimer Sodium Potassium Chloride Carbon Dioxide BUN Creatinine Estimated GFR BUN/Creatinine Ratio Glucose Lactate Calcium Magnesium Total Bilirubin AST ALT Alkaline Phosphatase Total Creatine Kinase CK-MB (CK-2) CK-MB (CK-2) Rel Index Troponin I 0.026 NT-Pro-B Natriuret Pep Total Protein Albumin Globulin Albumin/Globulin Ratio Triglycerides Cholesterol LDL Cholesterol, Calc HDL Cholesterol Procalcitonin 0.13 TSH SARS-CoV-2 (PCR) [facility] Medical History (Updated 07/19/21 @ 00:54 by VI Polanco) Atrial fibrillation Cardiomegaly Essential hypertension Murmur, heart Surgical History (Updated 07/19/21 @ 00:54 by VI Polanco) No history of previous surgery Family History Mother Dementia Father Sepsis Sister Cancer Social History household members: significant other Smoking Status: Never smoker Discharge Plan Discharge Plan Patient Disposition: Home Provider Discharge Comment: You were admitted to the hospital with congestive heart failure. Your heart function is reduced to about half of a normal heart. You should continue on these medications indefinitely, and may need adjustments as an outpatient with cardiology, whom you should schedule a follow up visit. You were recommended to start on a blood thinner for stroke prevention due to atrial fibrillation. Please follow up with your PCP as you will need to be star adilson and adjusted on warfarin instead given cost considerations. Discharge orders & Medications Prescriptions: New aspirin 81 mg Tablet,Delayed Release (Dr/Ec) 81 mg PO DAILY 30 Days Qty: 30 RF: 0 metoprolol succinate 25 mg tablet extended release 24 hr 12.5 mg PO BID 30 Days Qty: 30 RF: 0 lisinopril 5 mg tablet 5 mg PO DAILY 30 Days Qty: 30 RF: 0 furosemide 40 mg tablet 40 mg PO DAILY 30 Days Qty: 30 RF: 0 atorvastatin 40 mg tablet 40 mg PO BEDTIME 30 Days Qty: 30 RF: 0 Follow up/Referrals: Candelario Koch ARNP [Primary Care Provider] - Diet/Activity/Treatments Diet: Diet as Tolerated Activity: As tolerated Discharge Data Primary Care Provider: Candelario Koch Attending Provider: Sameer Huff VTE Deep Vein Thrombosis/Pulmonary Embolism Present on Admission: No
[2021-07-19 15:33] VITALS: BP 143/86; PULSE 61; RESP 16; TEMP 35.9; O2SAT 96
[2021-07-19 19:15] VITALS: PULSE 79; RESP 16; O2SAT 98
--- NOTE | 2021-07-19 22:37 | PC.NURSE ---
discharge reviewed w/ patient and spouse. medications reviewed, PM doses given x atorvastatin. encouraged them to look into good RX, an online discount savings program. tele and IV d/c'd/ they state they understand the plan of care while here at hospital, understand directions for d/c home. wallet retrieved from safe, signed and dated by this RN and patient. left floor in w/c, left for home via private car, escorted by Nichole.
== END 2021-07-19 20:00 | disposition home or self-care (01) ==
LOC: ED 18:18 → AC 18:18
PROVIDERS: Nurse Practitioner Family; Admitting Provider Internal Medicine; Emergency Provider Emergency Medicine; PCP Registered Nurse; Referring Provider Emergency Medicine; Visit Provider Internal Medicine
DX: I50.43 Acute on chronic combined systolic (congestive) and diastolic (congestive) heart failure (principal); R06.02 Shortness of breath; R42 Dizziness and giddiness; I48.19 Other persistent atrial fibrillation; I50.9 Heart failure, unspecified; I10 Essential (primary) hypertension; Z20.822 Contact with and (suspected) exposure to COVID-19
CPT/HCPCS: 36415; 71046; 80048; 80053; 80061; 82550; 82553; 83605; 83735; 83880; 84145; 84443; 84484; 85025; 85379; 85610; 85730; 87635; 93005; 93307; 96374; 96376; 99284; 99291; C9803; G0378; J1940

== ENCOUNTER 2021-08-15 08:54 | Emergency (ER) | payer MEDICARE, SELFPAY ==
[2021-07-18 18:29] VITALS: BMI 25.7
[2021-08-15 09:00] VITALS: BP 159/95; PULSE 78; RESP 18; TEMP 36.4; O2SAT 97; BMI 23.0
--- NOTE | 2021-08-15 09:01 | DI.RAD.S_ITS ---
PROCEDURE: XR CHEST 1V INDICATIONS: Shortness of breath TECHNIQUE: One view of the chest was acquired. COMPARISON: [facility], CR, XR CHEST 2 VIEWS, 06/02/2020, 11:28. [facility], CR, XR CHEST 2V, 07/18/2021, 17:18. FINDINGS: Surgical changes and devices: None. Lungs and pleura: Minimal interstitial prominence can be seen, which is improved compared to the 07/18/2021 examination. No pleural effusions or pneumothorax. Mediastinum: Mediastinal contours appear normal. Heart size is moderately enlarged. Bones and chest wall: No suspicious bony lesions. Overlying soft tissues appear unremarkable. IMPRESSION: Cardiomegaly and minimal interstitial prominence. Please correlate with patient presentation, physical examination findings, and laboratory values for congestive heart failure. Dictated by: Stanton Goetz M.D. on 08/15/2021 at 9:22 Approved by: Stanton Goetz M.D. on 08/15/2021 at 9:23
[2021-08-15 09:02] VITALS: PULSE 85; O2SAT 100
[2021-08-15 09:04] VITALS: BP 139/99; PULSE 84; RESP 18; O2SAT 98
[2021-08-15 09:13] VITALS: BP 159/95; PULSE 82; RESP 19; O2SAT 97
[2021-08-15 09:30] VITALS: BP 185/91; PULSE 69; RESP 18; O2SAT 95
--- NOTE | 2021-08-15 09:35 | ED_ITS ---
HPI - General Adult General Chief complaint: Shortness of Breath/Dyspnea Stated complaint: pressure in lungs dyspnea Time Seen by Provider: 08/15/21 09:00 Source: patient Mode of arrival: Ambulatory Limitations: no limitations History of Present Illness HPI narrative: Patient is a 70-year-old male. Within the past 4 weeks was admitted to this facility for evaluation of AFib and heart failure. Was discharged home on medications. Since that time has seen his primary doctor. Is scheduled for a follow-up in a couple weeks from now and a human resources team member after that. He states that yesterday he was moving a mattress and got short of breath. He had to stop what he was doing. He improved. He has been out of his medications for a couple days/week. He is currently not having any chest pain or shortness of breath. No lower extremity swelling. Essentially came to the emergency department for refill of his medications. Related Data Previous Rx's Medication Instructions Recorded aspirin 81 mg tablet,delayed 81 mg PO DAILY 30 Days #30 tab 07/19/21 release atorvastatin 40 mg tablet 40 mg PO BEDTIME 30 Days #30 tab 07/19/21 furosemide 40 mg tablet 40 mg PO DAILY 30 Days #30 tab 07/19/21 lisinopril 5 mg tablet 5 mg PO DAILY 30 Days #30 tab 07/19/21 metoprolol succinate 25 mg 12.5 mg PO BID 30 Days #30 tab 07/19/21 tablet,extended release 24 hr dabigatran etexilate 150 mg 150 mg PO BID #60 cap 07/24/21 capsule (Pradaxa) atorvastatin 40 mg tablet 40 mg PO BEDTIME #30 tab 08/15/21 dabigatran etexilate 150 mg 150 mg PO BID #60 cap 08/15/21 capsule (Pradaxa) furosemide 40 mg tablet (Lasix) 40 mg PO DAILY #30 tab 08/15/21 lisinopril 5 mg tablet 5 mg PO DAILY #30 tab 08/15/21 metoprolol succinate 25 mg 12.5 mg PO BID #60 tab 08/15/21 tablet,extended release 24 hr Allergies Allergy/AdvReac Type Severity Reaction Status Date / Time No Known Drug Allergies Allergy Verified 07/24/21 08:27 Review of Systems Constitutional Constitutional: Denies fever(s) Cardiovascular Cardiovascular: Reports as per HPI and Reports system reviewed and no additional complaints, except as documented Respiratory Respiratory: Reports as per HPI and Reports system reviewed and no additional complaints, except as documented Gastrointestinal Gastrointestinal: Reports system reviewed and no additional complaints, except as documented Musculoskeletal Musculoskeletal: Reports system reviewed and no additional complaints, except as documented Integumentary/Breasts Skin/Breast: Reports system reviewed and no additional complaints, except as documented Hematologic/Lymphatic On Anticoagulants: No Patient History Medical History Atrial fibrillation Cardiomegaly Essential hypertension Murmur, heart Surgical History No history of previous surgery Family History Mother Dementia Father Sepsis Sister Cancer Social History household members: significant other Smoking Status: Never smoker Smoking Status: Never smoker alcohol intake frequency: holidays/special occasions only Substance Use Type: marijuana Exam Initial Vital Signs Initial Vital Signs: Vital Signs Temperature 97.5 F L 08/15/21 09:00 Pulse Rate 78 08/15/21 09:00 Respiratory Rate 18 08/15/21 09:00 Blood Pressure 159/95 H 08/15/21 09:00 Pulse Oximetry 97 08/15/21 09:00 Const General: cooperative, healthy appearing, comfortable, well developed and well groomed Limitations: mental status not altered HENMT Head: normal to inspection and normocephalic Resp Effort & Inspection: normal respiratory effort Auscultation: clear to auscultation bilaterally Cardio Rate: regular rate Rhythm: regular rhythm GI Inspection: non-distended Palpation: soft Skin General: no rashes or lesions noted Neuro General: patient alert, patient awake and patient oriented x3 Cognition: normal cognition Speech: speech normal Gait: normal gait Extrem General: normal to inspection and No edema Psych Appearance: grossly normal and well kempt Course Orders Ordered: ED Orders 08/15/21 09:01 XR chest 1V Stat EKG-12 Lead Stat 08/15/21 09:05 COVID19 -Nasal swab/Pre-Proc Stat 08/15/21 09:20 Complete Blood Count AUTO DIFF Stat Comprehensive Metabolic Panel Stat NT-proBNP (BNP-Adult 18+) Stat Troponin & CK Cardiac Panel Stat Vital Signs Vital signs: Vital Signs - 8 hr 08/15/21 09:00 08/15/21 09:02 08/15/21 09:04 Temperature 97.5 F L Pulse Rate 78 85 84 Respiratory Rate 18 18 Blood Pressure 159/95 H 139/99 H Pulse Oximetry 97 100 98 08/15/21 09:13 08/15/21 09:30 Temperature Pulse Rate 82 69 Respiratory Rate 19 18 Blood Pressure 159/95 H 185/91 H Pulse Oximetry 97 95 Medical Decision Making Lab Data Result diagrams: 08/15/21 09:20 08/15/21 09:20 Labs: Lab Results 08/15/21 08/15/21 08/15/21 Range/Units 09:05 09:20 09:20 WBC 6.0 (4.5-11.0) X10^3/uL RBC 4.33 L (4.5-5.9) X10^6/uL Hgb 13.3 L (13.5-17.5) g/dL Hct 39.8 L (41-53) % MCV 91.8 (80-100) fL MCH 30.8 (26-34) PG MCHC 33.6 (30-36) % RDW 14.1 (11.6-14.8) % Plt Count 151 (150-400) X10^3/uL Neut % (Auto) 67.1 (50-75) % Lymph % (Auto) 20.4 L (25-40) % Teller % (Auto) 9.7 (3-14) % Eos % (Auto) 2.4 (2-4) % Baso % (Auto) 0.4 (0-2) % Neut # (Auto) 4000 (7535-1621) /uL Lymph # (Auto) 1200 (0631-0841) /uL Teller # (Auto) 600 (0-900) /uL Eos # (Auto) 100 (0-450) /uL Baso # (Auto) 0 (0-100) /uL Sodium 141 (137-145) mmol/L Potassium 4.1 (3.4-5.1) mmol/L Chloride 107 (98-107) mmol/L Carbon Dioxide 24 (22-32) mmol/L BUN 21 H (9-20) mg/dL Creatinine 0.94 (0.66-1.25) mg/dL Estimated GFR > 60.0 (>60) mL/min BUN/Creatinine Ratio 22.3 H (6-22) Glucose 112 H (80-110) mg/dL Calcium 8.9 (8.4-10.2) mg/dL Total Bilirubin 1.2 (0.2-1.3) mg/dL AST 26 (17-59) IU/L ALT 35 (<50) IU/L Alkaline Phosphatase 100 (38-126) U/L Total Creatine Kinase 154 (55-170) U/L CK-MB (CK-2) 2.05 (<2.37) ng/mL CK-MB (CK-2) Rel Index 1.3 L (1.5-5.0) % Troponin I 0.029 (0.01-0.034) ng/mL NT-Pro-B Natriuret Pep 8940 H (<125) pg/mL Total Protein 7.2 (6.3-8.2) g/dL Albumin 4.3 (3.5-5.0) g/dL Globulin 2.9 (1.7-4.1) g/dL Albumin/Globulin Ratio 1.5 (1.0-2.8) SARS-CoV-2 (PCR) Negative (Negative) Imaging Data Chest x-ray: Radiologist's Impression: [address] [address] XRay Report Signed Patient: Rodney Izquierdo MR#: [id number] : 1950 Acct:[id number] Age/Sex: 70 / M Date of Service: 08/15/21 Loc: ED Accession Number: [id number] ?? Procedure: XR chest 1V Ordering Provider: Johnson Armenta D.O. PROCEDURE:? XR CHEST 1V ? INDICATIONS:? Shortness of breath ? TECHNIQUE:? One view of the chest was acquired.? ? COMPARISON:? [facility], CR, XR CHEST 2 VIEWS, 06/02/2020, 11:28.? [facility], CR, XR CHEST 2V, 07/18/2021, 17:18. ? FINDINGS:? ? Surgical changes and devices:? None.? ? Lungs and pleura:? Minimal interstitial prominence can be seen, which is improved compared to the 07/18/2021 examination.? No pleural effusions or pneumothorax.? ? Mediastinum:? Mediastinal contours appear normal.? Heart size is moderately enlarged.? ? Bones and chest wall:? No suspicious bony lesions.? Overlying soft tissues appear unremarkable.? IMPRESSION:? Cardiomegaly and minimal interstitial prominence. Please correlate with patient presentation, physical examination findings, and laboratory values for congestive heart failure. ? ? ? Dictated by: Stanton Goetz M.D. on 08/15/2021 at 9:22 ? ? Approved by: Stanton Goetz M.D. on 08/15/2021 at 9:23 ECG Data Attestation: I personally reviewed and interpreted this ECG as follows: Interpretation: Atrial fibrillation Ventricular rate [address] T wave changes MDM Narrative Medical decision making narrative: Patient is not hypoxic, not tachypneic, has no lower extremity swelling. No shortness of breath nor chest pain today. He does have an elevated BNP and I harris spect that this is because he has been off of his Lasix for the past several days/week. I will refill his medications. Patient is in AFib. He has a history of AFib. Unsure whether not this is persistent or paroxysmal. Patient is unsure. It appears that he should be taken dabigatran however he is not on this medicine. He states that him and his provider discuss this earlier this month but he does not have any medication. Review of that note does not show a specific location or that medicine was electronically transmitted so I will do that today. He was given return precautions and follow-up instructions. He expressed understanding and agreement. Discharge Plan Departure Patient Disposition: Home Clinical Impression: Atrial fibrillation, Heart failure Instructions: Atrial Fibrillation, DI for Heart Failure Activity Restrictions/Additional Instructions: I sent a refill of all of your medications to [facility]. Please start taking them as directed. I also sent a prescription for medicine called Pradaxa. This is a blood thinner. Start taking it as directed. Keep all of your scheduled medical appointments. Return to the emergency department for any new or worsening symptoms Prescriptions: New Pradaxa 150 mg capsule 150 mg PO BID Qty: 60 0RF lisinopril 5 mg tablet 5 mg PO DAILY Qty: 30 0RF furosemide [Lasix] 40 mg tablet 40 mg PO DAILY Qty: 30 0RF metoprolol succinate 25 mg tablet extended release 24 hr 12.5 mg PO BID Qty: 60 0RF atorvastatin 40 mg tablet 40 mg PO BEDTIME Qty: 30 0RF No Action Pradaxa 150 mg capsule 150 mg PO BID Qty: 60 3RF aspirin 81 mg Tablet,Delayed Release (Dr/Ec) 81 mg PO DAILY 30 Days Qty: 30 0RF metoprolol succinate 25 mg tablet extended release 24 hr 12.5 mg PO BID 30 Days Qty: 30 0RF lisinopril 5 mg tablet 5 mg PO DAILY 30 Days Qty: 30 0RF furosemide 40 mg tablet 40 mg PO DAILY 30 Days Qty: 30 0RF atorvastatin 40 mg tablet 40 mg PO BEDTIME 30 Days Qty: 30 0RF Referrals: Candelario Koch ARNP [Primary Care Provider] -
[2021-08-15 09:42] LABS: Add Manual Diff / Slide Review NO; Basophils Absolute Auto 0 /uL (0-100); Basophils Percent Auto 0.4 % (0-2); Eosinophils Absolute Auto 100 /uL (0-450); Eosinophils Percent Auto 2.4 % (2-4); Hematocrit 39.8 % (41-53); Hemoglobin 13.3 g/dL (13.5-17.5); Lymphocytes Absolute Auto 1200 /uL (1100-4500); Lymphocytes Percent Auto 20.4 % (25-40); Mean Corpuscular HGB Conc 33.6 % (30-36); Mean Corpuscular Hemoglobin 30.8 PG (26-34); Mean Corpuscular Volume 91.8 fL (80-100); Monocytes Absolute Auto 600 /uL (0-900); Monocytes Percent Auto 9.7 % (3-14); Neutrophils Absolute Auto 4000 /uL (1500-7000); Neutrophils Percent Auto 67.1 % (50-75); Platelet Count 151 X10^3/uL (150-400); Red Blood Cell Count 4.33 X10^6/uL (4.5-5.9); Red Cell Distribution Width 14.1 % (11.6-14.8)
[2021-08-15 09:49] LABS: Alanine Aminotransferase 35 IU/L (<50); Albumin 4.3 g/dL (3.5-5.0); Albumin Globulin Ratio 1.5 (1.0-2.8); Alkaline Phosphatase 100 U/L (38-126); Aspartate Aminotransferase 26 IU/L (17-59); BUN Creatinine Ratio 22.3 (6-22); Bilirubin Total 1.2 mg/dL (0.2-1.3); Blood Urea Nitrogen 21 mg/dL (9-20); Calcium 8.9 mg/dL (8.4-10.2); Carbon Dioxide 24 mmol/L (22-32); Chloride 107 mmol/L (98-107); Creatine Kinase 154 U/L (55-170); Estimated Glomerular Filt Rate > 60.0 mL/min (>60); Globulin 2.9 g/dL (1.7-4.1); Glucose 112 mg/dL (80-110); HEMOLYSIS < 15 (0-50); Potassium 4.1 mmol/L (3.4-5.1); Sodium 141 mmol/L (137-145); Total Protein 7.2 g/dL (6.3-8.2)
[2021-08-15 09:56] LABS: COVID19 -Nasal RAPID Negative (Negative)
[2021-08-15 10:01] LABS: NT-proBNP (BNP-Adult 18+) 8940 pg/mL (<125); Troponin I 0.029 ng/mL (0.01-0.034)
[2021-08-15 10:04] LABS: CKMB % Relative Index 1.3 % (1.5-5.0); Creatine Kinase MB 2.05 ng/mL (<2.37)
[2021-08-15 11:27] VITALS: BP 169/84; PULSE 60; RESP 18; O2SAT 98
== END 2021-08-15 11:28 | disposition home or self-care (01) ==
PROVIDERS: Emergency Provider Emergency Medicine; PCP Registered Nurse
DX: I48.91 Unspecified atrial fibrillation (principal); I50.9 Heart failure, unspecified; Z20.822 Contact with and (suspected) exposure to COVID-19
CPT/HCPCS: 36415; 71045; 80053; 82550; 82553; 83880; 84484; 85025; 87635; 93005; 99283; 99284; C9803

== ENCOUNTER 2021-09-18 14:17 | Emergency (ER) | payer MEDICARE, SELFPAY ==
[2021-07-18 18:29] VITALS: BMI 25.7
[2021-09-18 14:20] VITALS: BP 185/74; PULSE 67; RESP 18; TEMP 36.6; O2SAT 99; BMI 24.4
[2021-09-18 15:24] VITALS: PULSE 57; O2SAT 99
[2021-09-18 15:25] VITALS: BP 169/73; PULSE 53; O2SAT 98
[2021-09-18 15:30] VITALS: BP 174/77; PULSE 49; RESP 18; O2SAT 99
--- NOTE | 2021-09-18 15:30 | PC.NURSE ---
Patient here today because he ran out of prescription medications, here for a refill for BP meds. Has been out for 2 days.
--- NOTE | 2021-09-18 15:43 | ED.GENADULT ---
HPI - General Adult General Chief complaint: Hypertension Stated complaint: Needs Heart Medication Refill Time Seen by Provider: 09/18/21 15:38 Source: patient Mode of arrival: Ambulatory History of Present Illness HPI narrative: Patient is a 70-year-old male history of congestive heart failure, atrial fibrillation on Pradaxa, hypertension rhythm from a with need for medication refill. He was here August 15 given a month's worth of medicine and states that he has now been out for the last 2 days. He has not yet followed up with his primary care provider he has appointment with Cardiology October 15 but did think he should wait that long. He is completely asymptomatic. He denies headache chest pain heart palpitations or any other symptoms. He has quite a bit of Pradaxa left along with the metoprolol. He is taking home hospice a metoprolol twice a day, heart rate is on the low side but he is asymptomatic. Related Data Home Medications Medication Instructions Recorded Confirmed metoprolol succinate 25 mg 25 mg PO DAILY 09/18/21 09/18/21 tablet,extended release 24 hr Previous Rx's Medication Instructions Recorded atorvastatin 40 mg tablet 40 mg PO BEDTIME #30 tab 08/15/21 dabigatran etexilate 150 mg 150 mg PO BID #60 cap 08/15/21 capsule (Pradaxa) furosemide 40 mg tablet (Lasix) 40 mg PO DAILY #30 tab 08/15/21 lisinopril 5 mg tablet 5 mg PO DAILY #30 tab 08/15/21 atorvastatin 40 mg tablet 40 mg PO BEDTIME #14 tab 09/18/21 furosemide 40 mg tablet (Lasix) 40 mg PO DAILY #14 tab 09/18/21 lisinopril 5 mg tablet 5 mg PO DAILY #14 tab 09/18/21 Allergies Allergy/AdvReac Type Severity Reaction Status Date / Time No Known Drug Allergies Allergy Verified 07/24/21 08:27 Review of Systems Review of Systems Narrative: GENERAL: Denies chills,fever HEENT: Denies throat pain RESPIRATORY: Denies dyspnea, cough, wheezing CARDIOVASCULAR: Denies chest pain, palpitations GASTROINTESTINAL: Denies nausea, vomiting MUSCULOSKELETAL: Denies extremity pain, injury SKIN: No rash, no laceration, no pruritus NEUROLOGIC: Denies weakness, dizziness, headache, numbness 8 point review of systems is negative except for those stated above and HPI Patient History Medical History Atrial fibrillation Cardiomegaly Essential hypertension Murmur, heart Surgical History No history of previous surgery Family History Mother Dementia Father Sepsis Sister Cancer Social History household members: significant other Smoking Status: Never smoker Smoking Status: Never smoker alcohol intake frequency: holidays/special occasions only Substance Use Type: does not use Exam Initial Vital Signs Initial Vital Signs: Vital Signs Temperature 97.8 F 09/18/21 14:20 Pulse Rate 67 09/18/21 14:20 Respiratory Rate 18 09/18/21 14:20 Blood Pressure 185/74 H 09/18/21 14:20 Pulse Oximetry 99 09/18/21 14:20 GENERAL: Well-appearing, well-nourished and in no acute distress. CARDIOVASCULAR: peripheral pulses in tact, cap refill <2 sec RESPIRATORY: No respiratory distress, speaks in full sentences without difficulty EXTREMITIES: Normal range of motion, no clubbing or edema. Neurovascularly intact NEUROLOGICAL: Cranial nerves II through XII grossly intact. Normal gait and speech. SKIN: Warm, dry, no petechiae, no rashes or lesions. Course Vital Signs Vital signs: Vital Signs - 8 hr 09/18/21 14:20 09/18/21 15:24 09/18/21 15:25 Temperature 97.8 F Pulse Rate 67 57 L 53 L Respiratory Rate 18 Blood Pressure 185/74 H 169/73 H Pulse Oximetry 99 99 98 09/18/21 15:30 09/18/21 16:00 09/18/21 16:01 Temperature Pulse Rate 49 L 48 L 52 L Respiratory Rate 18 13 17 Blood Pressure 174/77 H 118/67 Pulse Oximetry 99 99 98 Medical Decision Making MDM Narrative Medical decision making narrative: Patient overall appears well heart rate is sometimes low in the 40s but he is completely asymptomatic. He is on a very small dose of metoprolol for AFib rate control his heart rate continues to be low or he is symptomatic this may need to be stopped changed. Discharge Plan Departure Patient Disposition: Home Clinical Impression: Atrial fibrillation Instructions: Atrial Fibrillation Activity Restrictions/Additional Instructions: *You have been diagnosed with atrial fibrillation, medication refill *What to do: The emergency department is not a place for you to get regular refills of your medications. Please follow up with your primary care provider in order to help better care for your diseases *Continue to take medications as directed--> Sent to [facility] Lisinopril 5 mg daily Lasix 40 mg once a day Atorvastatin 40 mg at bedtime Please continue metoprolol and Pradaxa as previously prescribed *Follow up with your primary care provider in 2-3 days or call [phone] *Return to ER if you should have chest pain, palpitations, dizziness, lightheadedness or any new, worsening or concerning symptoms Prescriptions: New lisinopril 5 mg tablet 5 mg PO DAILY Qty: 14 0RF atorvastatin 40 mg tablet 40 mg PO BEDTIME Qty: 14 0RF furosemide [Lasix] 40 mg tablet 40 mg PO DAILY Qty: 14 0RF No Action Pradaxa 150 mg capsule 150 mg PO BID Qty: 60 0RF lisinopril 5 mg tablet 5 mg PO DAILY Qty: 30 0RF furosemide [Lasix] 40 mg tablet 40 mg PO DAILY Qty: 30 0RF atorvastatin 40 mg tablet 40 mg PO BEDTIME Qty: 30 0RF metoprolol succinate 25 mg tablet extended release 24 hr 25 mg PO DAILY 0RF Label Comments: Pt reports he's been taking a full tab daily Referrals: Candelario Koch ARNP [Primary Care Provider] -
[2021-09-18 16:00] VITALS: PULSE 48; RESP 13; O2SAT 99
[2021-09-18 16:01] VITALS: BP 118/67; PULSE 52; RESP 17; O2SAT 98
== END 2021-09-18 16:05 | disposition home or self-care (01) ==
PROVIDERS: Emergency Provider Emergency Medicine; PCP Registered Nurse
DX: I48.91 Unspecified atrial fibrillation (principal)
CPT/HCPCS: 99281

== ENCOUNTER → 2024-01-24 10:37 | Outpatient (CLI) | payer MEDICARE, SELFPAY ==
[2021-10-05 08:34] VITALS: BMI 25.7
[2024-01-24 11:56] LABS: Alanine Aminotransferase 19 IU/L (<50); Albumin 4.2 g/dL (3.5-5.0); Albumin Globulin Ratio 1.5 (1.0-2.8); Alkaline Phosphatase 76 U/L (38-126); Aspartate Aminotransferase 23 IU/L (17-59); BUN Creatinine Ratio 21.1 (6-22); Bilirubin Total 1.1 mg/dL (0.2-1.3); Blood Urea Nitrogen 23 mg/dL (9-20); Calcium 9.1 mg/dL (8.4-10.2); Carbon Dioxide 27 mmol/L (22-32); Chloride 108 mmol/L (98-107); Cholesterol 95 mg/dL (140-199); Estimated Glomerular Filt Rate > 60 mL/min (>60); Globulin 2.8 g/dL (1.7-4.1); Glucose 114 mg/dL (80-110); HDL Cholesterol 45 mg/dL (40-60); HEMOLYSIS < 15 (0-50); LDL Cholesterol Calculated 38 mg/dL (<100); Potassium 4.5 mmol/L (3.4-5.1); Sodium 140 mmol/L (137-145); Triglycerides 59 mg/dL (35-150)
[2024-01-24 12:25] LABS: Thyroid Stimulating Hormone 1.46 uIU/mL (0.47-4.68)
== END ==
LOC: LAB 10:41
PROVIDERS: PCP Registered Nurse; Referring Provider Nurse Practitioner; Visit Provider Nurse Practitioner
DX: I48.19 Other persistent atrial fibrillation (principal); I10 Essential (primary) hypertension; E78.5 Hyperlipidemia, unspecified
CPT/HCPCS: 36415; 80053; 80061; 84443